=== PATIENT | male | born 1955 | race Caucasian/White ===

== ENCOUNTER 2017-08-23 23:27 | Emergency (ER) | payer MEDICARE, MEDICAID ==
--- NOTE | 2017-08-24 00:01 | ED Physician Chart ---
ED Chief Complaint/HPI - Patient Information Date Seen:: 08/23/17 Time Seen:: 23:47 Chief Complaint:: CHEST CONGESTION History of Present Illness:: THIS IS A 61 YR OLD MALE CVA PATIENT WHO IS HEMIPLEGIC, ELEVATED LIPIDS, APHASIC SENT IN BY HIS DOCTOR FROM [facility]. HIS DOCTOR WANT HIM EVALUATED FOR POSSIBLE PNEUMONIA. Allergies:: Allergies Allergy/AdvReac Type Severity Reaction Status Date / Time No Known Allergies Allergy Verified 08/23/17 23:52 Vitals:: Vital Signs - 8 hr 08/23/17 23:35 Temp 97.7 F HR 92 RR 17 BP 118/78 O2 Sat % 97 Historian:: EMS, Medical Records Review:: Nurse's Note Reviewed, Transfer documents Reviewed, Patient unable to respond ED Review of Systems - Review of Systems General/Constitutional: No fever, No chills, No weight loss, No weakness, No diaphoresis, No edema, No loss of appetite, Other (THIS PATIENT IS NOT ABLE TO GIVE A REVIEW OF SYSTEMS.) Skin: No skin lesions, No rash, No bruising Head: No headache, No light-headedness Eyes: No loss of vision, No pain, No diplopia ENT: No earache, No nasal drainage, No sore throat, No tinnitus Neck: No neck pain, No swelling, No thyromegaly, No stiffness, No mass noted Cardio Vascular: No chest pain, No palpitations, No PND, No orthopnea, No edema Pulmonary: No SOB, No cough, No sputum, No wheezing GI: No nausea, No vomiting, No diarrhea, No pain, No melena, No hematochezia, No constipation, No hematemesis G/U: No dysuria, No frequency, No hematuria Musculoskeletal: No bone or joint pain, No back pain, No muscle pain Endocrine: No polyuria, No polydipsia Psychiatric: No prior psych history, No depression, No anxiety, No suicidal ideation Hematopoietic: No bruising, No lymphadenopathy Allergic/Immuno: No urticaria, No angioedema Neurological: No syncope, No focal symptoms, No weakness, No paresthesia, No headache, No seizure, No dizziness, No confusion, No vertigo ED Past Medical History - Past Medical History Obtainable: Yes Past Medical History: HTN, CVA/TIA, Dyslipidemia Family History: None Social History: Non Smoker, No Alcohol, No Drug Use, Care Facility Surgical History: None Psychiatricy History: None Medication: Reviewed Family Medical History - Family Member Mother History Unknown: Yes ED Physical Exam - Physical Examination General/Constitutional: Awake, Well-developed, well-nourished, Alert, No distress, GCS 15, Non-toxic appearing Other Gen/Cons comments:: THIS IS A APHASIC, HEMIPARESIS, HEMIPLEIC ON THE LEFT SIDE WHO IS WEAK AND CONFUSED; Head: Atraumatic Eyes: Lids, conjuctiva normal, PERRL, EOMI Skin: Nl inspection, No rash, No skin lesions, No ecchymosis, Well hydrated, No lymphadenopathy ENMT: External ears, nose nl, Nasal exam nl, Lips, teeth, gums nl Neck: Nontender, Full ROM w/o pain, No JVD, No nuchal rigidity, No bruit, No mass, No stridor Respiratory: Nl effort/Exclusion, Clear to Auscultation, No Wheeze/Rhonchi/ Rales (MILD BILATERAL RHONCHI ARE HEARD) Cardio Vascular: RRR, No murmur, gallop, rubs, NL S1 S2 GI: No tenderness/rebounding/guarding, No organomegaly, No hernia, Normal BS's, Nondistended, No mass/bruits, No McBurney tenderness : No CVA tenderness Extremities: No tenderness or effusion, Full ROM, normal strength in all extremities, No edema, Normal digits & nails Other Extremities comments:: THERE IS SIGNIFICANT MUSCLE WASTING OF ALL FOUR EXTREMITIES. WITH LEFT SIDED SPASTIC PARALYSIS. Neuro/Psych: Alert/oriented, DTR's symmetric, Normal sensory exam, Normal motor strength, Judgement/insight normal, Mood normal, Normal gait, No focal deficits Misc: Normal back, No paraspinal tenderness ED Labs/Radiology/EKG Results - Lab Results Results: Abnormal Lab Results 08/24/17 08/24/17 08/24/17 00:05 00:05 00:05 WBC 8.1 RBC 5.13 Hgb 14.8 Hct 44.0 MCV 85.8 MCH 28.9 MCHC Differential 33.7 RDW 13.0 Plt Count 249 MPV 8.3 Neutrophils % 63.7 Lymphocytes % 25.5 Monocytes % 7.5 Eosinophils % 2.7 Basophils % 0.6 PT 10.7 INR 1.03 Sodium 136 Potassium 3.6 Chloride 106 Carbon Dioxide 23.2 Anion Gap 10.4 BUN 14 Creatinine 0.7 Est GFR ( Amer) > 60.0 Est GFR (Non-Af Amer) > 60.0 BUN/Creatinine Ratio 20.0 Glucose 114 H Calcium 9.0 Total Bilirubin 0.5 AST 14 ALT 10 Alkaline Phosphatase 97 Troponin I Total Protein 6.7 Albumin 3.3 L Globulin 3.4 Albumin/Globulin Ratio 1.0 08/24/17 00:05 WBC RBC Hgb Hct MCV MCH MCHC Differential RDW Plt Count MPV Neutrophils % Lymphocytes % Monocytes % Eosinophils % Basophils % PT INR Sodium Potassium Chloride Carbon Dioxide Anion Gap BUN Creatinine Est GFR ( Amer) Est GFR (Non-Af Amer) BUN/Creatinine Ratio Glucose Calcium Total Bilirubin AST ALT Alkaline Phosphatase Troponin I 0.01 Total Protein Albumin Globulin Albumin/Globulin Ratio - Radiology Results Results: ct scan of the chest = nad disease - EKG Interpretations EKG Time:: 00:02 Rate & Rhythm: 85, SINUS [place]: LEFT AXIS Intervals: RIGHT BBB Comments:: NO ECTOPY SEEN. ED Assessment - Assessment General Assessment: BRONCHITIS ED Septic Shock - . Is Septic Shock (SBP<90, OR Lactate>4 mmol\L) present?: No - <6hrs of presentation: Vital Signs: Vital Signs - 8 hr 08/23/17 23:35 Temp 97.7 F HR 92 RR 17 BP 118/78 O2 Sat % 97 ED Reassessment (Disposition) - Reassessment Reassessment Condition:: Improved - Diagnosis Diagnosis:: bronchitis - Aftercare/Follow up Instructions Aftercare/Follow-Up Instructions:: Counseled pt regarding lab results/diagnosis & need follow up, Refer to Discharge Instructions, Counseled pt & family regarding lab results/diagnosis & need follow up - Patient Disposition Discharge/Transfer:: [facility] - SNF Condition at Disposition:: Unchanged ED Discharge Plan - Patient Disposition Admit/Discharge/Transfer: Discharge/Transfered to SNF
[2017-08-24 00:14] LABS: % BASOPHILS 0.6 % (0.0-2.0); % EOSINOPHILS 2.7 % (0.0-5.0); % LYMPHOCYTES 25.5 % (20.0-50.0); % MONOCYTES 7.5 % (2.0-10.0); % NEUTROPHILS 63.7 % (40.0-80.0); EOSINOPHILE ABSOLUTE 0.2 Th/cmm (0.1-0.4); HEMOGLOBIN 14.8 gm/dL (12-16); LYMPHOCYTE ABSOLUTE 2.1 Th/cmm (1.5-3.0); MEAN CELL VOLUME 85.8 fl (80-99); MEAN CORPUSCULAR HEMOGLOBIN 28.9 pg (26.0-30.0); MEAN CORPUSCULAR HGB CONC 33.7 pg (28.0-36.0); MEAN PLATELET VOLUME 8.3 fl; MONOCYTE ABSOLUTE 0.6 Th/cmm (0.3-1.0); NEUTROPHILE ABSOLUTE 5.2 Th/cmm (1.8-8.0); PLATELET COUNT 249 Th/cmm (150-400); RED BLOOD COUNT 5.13 Mil/cmm (4.30-5.70); WHITE BLOOD COUNT 8.1 Th/cmm (4.8-10.8)
[2017-08-24 00:22] LABS: INR 1.03 (0.5-1.4); PROTHROMBIN TIME (TEST) 10.7 SECONDS (9.5-11.5)
[2017-08-24 00:33] LABS: ALBUMIN 3.3 gm/dL (4.2-5.5); ALKALINE PHOSPHATASE 97 U/L (34-104); ANION GAP 10.4 (7.0-16.0); BILIRUBIN,TOTAL 0.5 mg/dL (0.3-1.0); BUN - UREA NITROGEN 14 mg/dL (7-25); CARBON DIOXIDE 23.2 mEq/L (21.0-31.0); CHLORIDE 106 mEq/L (98-107); CREATININE - SERUM 0.7 mg/dL (0.7-1.3); GFR AFRICAN-AMERICAN > 60.0 ml/min (>90); GFR NON AFRICAN-AMERICAN > 60.0 ml/min; GLUCOSE 114 mg/dL (70-105); POTASSIUM SERUM 3.6 mEq/L (3.5-5.1); SGOT 14 U/L (13-39); SGPT/ALT 10 U/L (7-52); SODIUM SERUM 136 mEq/L (136-145); TOTAL PROTEIN,SERUM 6.7 gm/dL (6.0-8.3)
--- NOTE | 2017-08-24 08:51 | Diagnostic Imaging Report ---
CT scan of the chest without intravenous contrast HISTORY: Shortness of breath Total DLP equals 299 CTDI equals 8.7 Axial sections were obtained from a level above the clavicles down to level below the diaphragm. The heart size is generous. Severe coronary artery calcification noted. Atherosclerotic calcification seen in the aorta. No abnormal mediastinal masses. Evaluation of the hilar vascular structures limited due to the absence of intravenous contrast. No obvious abnormal masses. There is generalized accentuation of the lower interstitial lung markings. No definite focal processes. Limited sections below the diaphragm and straight an approximate 1.57 m gallstone. IMPRESSION: 1. No definite acute intrathoracic abnormalities 2. Cardiomegaly with evidence of severe coronary artery and atherosclerotic vascular disease 3. Cholelithiasis
== END 2017-08-24 02:39 ==
LOC: ER 23:27
DX: J40 Bronchitis, not specified as acute or chronic (principal); I10 Essential (primary) hypertension; E78.5 Hyperlipidemia, unspecified; Z86.73 Personal history of transient ischemic attack (TIA), and cerebral infarction without residual deficits
CPT/HCPCS: 36415-UA; 71250-TC; 80053-TC; 84443-TC; 84484-TC; 85025-TC; 85610-TC; 93005